=== PATIENT | female | born 1970 | race Caucasian/White ===

== ENCOUNTER 2019-12-23 08:55 | Outpatient (CLI) | payer BC, SELFPAY ==
--- NOTE | ~2019-12-23 | MM_ITS ---
EXAMINATION: MM scrn vicky implant BI w peter HISTORY: Screening mammogram TECHNIQUE: Craniocaudal and mediolateral oblique 3-D tomosynthesis images with implant displacement a nd synthetic 2-D images were generated. Craniocaudal and mediolateral oblique views of the breasts wi thout implant displacement were obtained using full field digital mammography. CAD analysis was submi tted and interpreted. COMPARISON: 01/14/2018, 11/10/2016, 02/22/2015 bilateral implant digital screening mammogram examinati ons BREAST PARENCHYMAL COMPOSITION: The breasts are almost entirely fatty. FINDINGS: Status post bilateral augmentation mammoplasty. There is no evidence of suspicious mass, ca lcification, or architectural distortion to suggest malignancy in either breast. There has been no pierre spicious interval change. IMPRESSION: 1. No mammographic evidence of malignancy. 2. Recommend routine screening mammography in one year. BI-RADS Category 1: Negative Reviewed, dictated and finalized at location A.
== END 2019-12-23 08:56 | disposition home or self-care (01) ==
LOC: ANHIMG 08:57
PROVIDERS: PCP Registered Nurse; Visit Provider Registered Nurse
DX: Z12.31 Encounter for screening mammogram for malignant neoplasm of breast (principal)
CPT/HCPCS: 77063; 77067

== ENCOUNTER 2023-11-23 00:44 | Day surgery (SDC) | payer OTHER, SELFPAY ==
--- NOTE | 2023-11-19 10:43 | SUR.PREOP ---
Report to the Outpatient Waiting Room, entrance under the green pavilion located off [facility], at time ___1130____ on date ____11/23/23___. Planned Procedure Time: ____1330____. Time changes happen often and if your time is changed the preop area will call you the afternoon before. - You and your visitor will be asked to self-screen and do not enter if you have any COVID symptoms. - A mask is optional within the hospital at this time. Patients may have clear liquids (water, carbonated beverages, clear teas, apple juice) until 3 hours prior to surgery with a maximum of 20 ounces. - NO CLEAR LIQUIDS AFTER 1030 - No food from midnight until time of surgery - Infants may have breast milk until 4 hours before surgery, infant formula 6 hours prior to surgery. - Children will be allowed to drink immediately following surgery. If applicable, please bring a bottle or sippy cup to assist with drinking. Juice, water, soda, and popsicles are readily available. For infants on formula, please bring formula the day of surgery. Pacifiers are allowed. Take the following medications with a SIP of water the morning of surgery: N/A DO NOT STOP ANY OF YOUR OTHER PRESCRIPTION MEDICATIONS PRIOR TO SURGERY ?EXCEPT THE FOLLOWING Medications to discontinue per physician N/A Date to take last dose Please no make-up, nail [place] islander, hairspray, perfume, deodorant, or body powder the day of surgery. No jewelry (including any body piercings) or valuables the day of surgery, leave them at home. Please take a shower or bath the night before, or the morning of, surgery with an antibacterial soap. Wear comfortable, loose fitting clothing. Children are encouraged to wear pajamas. - Jewelry must be removed prior to entering the operating room. Rings and piercings that are not removed may be cut off. - The hospital will not accept responsibility for valuables. - Please leave all valuables, including medications, at home the day of surgery. If you are going home after surgery, a licensed straddle truck driver must drive you home. - NO public transportation without another adult if you receive anesthesia. - We recommend that an adult stay with you for 24 hours following discharge. - We also recommend that you do not drive, make important decision, drink alcoholic beverages, or take any drugs that were not prescribed by your health care provider for at least 24 hours after your discharge time. For Pediatric surgeries, we recommend two adults accompany the child home. Follow any additional instructions given to you from your surgeon. If you or anyone in your household have experienced Covid symptoms in the past week, please notify your surgeon or the nurse liaison at the phone number below for possible testing. Telephone instructions given to DONNA VALENTIN and asked if any additional questions and then verbalized understanding. Patient advised to call surgeon office or pre surgery nurse liaison [phone] if any additional questions.
[2023-11-19 10:56] VITALS: BMI 29.1
[2023-11-23] VITALS (7 sets, daily range): BP systolic 111–125; BP diastolic 73–80; PULSE 84–104; RESP 12–16; TEMP 36.2–36.3; O2SAT 97–100; BMI 27.6
[2023-11-23 06:28] LABS: Urine Cotinine NEGATIVE
--- NOTE | 2023-11-23 07:00 | P.PNAN_ITS ---
Anes - Initial Pre Proc Eval Procedure: Operation Date: 11/23/23 07:30 Proposed Procedures p Bilateral Breast Implant Exchange - Luis F Loo MD s Bilateral Breast Mastopexy - Luis F Loo MD Date/Time: 11/23/23 07:00 Surgeon: Luis F Loo MD Pre Op Diagnosis: hx of breast aug, breast ptosis Patient Data Age: 53 Gender: F Height: 1.65 m Weight: 79.5 kg Allergies Allergy/AdvReac Type Severity Reaction Status Date / Time No Known Allergies Allergy Unverified 11/19/23 10:54 Home Medications Medication Instructions Recorded Confirmed Type No Home Medications 11/19/23 11/19/23 History Laboratory Tests 11/23/23 06:11 Cotinine Negative Patient hx anesthesia problems: hx of malignant hyperthermia (Her little brother had MH episode w dental sx. He survived and family has had subsequent nontriggering anesthetics. ) Family hx anesthesia problems: none Results Review: All pre-operative results and documents have been reviewed as part of the pre- operative evaluation. [facility] Social History Social History Smoking status: Never smoker Alcohol intake: current Drinks per week: 4 Substance use: never Living arrangements: with family Spiritual care concerns: No Anes - Eval Final PreProcedure Day of Procedure 11/23/23 07:00 Patient weight: overweight Heart: regular rate and rhythm Lungs: clear to auscultation Airway: Mallampati scale class II Neurological: alert and oriented Last oral intake: >/= 8 hours ASA classification: I Emergent: no Anesthetic plan: proceed Anesthesia type and monitoring: general LMA and standard monitoring Results Review: All pre-operative results and documents have been reviewed as part of the pre- operative evaluation. Informed Consent: The patient's anesthetic plan and its attendant risks and benefits were discussed with the patient/family/POA. Questions were solicited and answers provided to the satisfaction of the patient/family/POA.
--- NOTE | 2023-11-23 07:21 | P.OP_ITS ---
Procedure Note - Detailed Date of Procedure 11/23/23 Pre-op Diagnosis hx of breast aug, breast ptosis Post-op Diagnosis Same Procedure Performed Bilateral implant exchange / mastopexy Surgeon Luis F Loo MD Anesthesia General Findings Inverted T Previous implants: Textured saline ruptured 325cc No worrisome features noted New Implants: Bilateral Sheyla Franco SoftTouch 440cc Right REF# [id number] SN [id number] Left REF# [id number] SN [id number] Lipoaspirate: 200 cc Description of Procedure She is here today for bilateral breast implant exchange mastopexy. Previously and again today the risks, benefits, alternatives were discussed in extensive detail. I wanted her to be very realistic about the risks involved as well as expectations. We discussed all her options for scar pattern given retraction and she has elected not to place a scar around the areola only vertical / IMF accepting a slight asymmetry of NAC position. She understands laterally she will have fullness as her adipose tissue extends to the back. She may have skin laxity as well. We discussed aftercare and what to monitor for. Made sure answered all of her questions to her satisfaction today and consent was obtained. Marked in the preoperative holding area with their verification. The patient was taken to the operating room placed supine on the operating table. Anesthesia was provided by anesthesiology. A surgical time-out was taken. She was prepped and draped in a standard sterile fashion. 11 blade mad a stab incision and the Lateral breast was infiltrated with a tumescent solution (avoiding central breast). Tegaderm nipple Bowens were placed. A 15 blade used to make an incision at the previous IMF scar. Dissection was continued until the previous implant was identified and removed. Capsulotomy completed for significant portion capsule. I then copiously irrigated with saline solution and verified a strict hemostasis. Next the use a triple antibiotic and Betadine containing solution to irrigate the pocket. I washed my gloves with the triple antibiotic and Betadine solution. We washed the implant immediately upon opening it with this solution and only opened it when we needed it. I used implant funnel and no-touch technique. The implant was introduced into the pocket using the funnel. Having verified positioning of the implant this was closed using 2-0 PDS. I tailor tacked the breast into position. Placed her in a sitting position. Suction lipectomy was completed laterally with a 4mm [place] cannula based on preoperative planning, intraoperative observation, and rolling pinch test. I then removed the inferior central portion of the breast need making sure the implant was well protected. I elevated medial and lateral tissue flaps as well for planned closure. I closed along the IMF with 2-0 Stratafix. Along the vertical with 2-0 PDS. 3- 0 Monocryl along the vertical. 3-0 Stratafix along the IMF. I finally closed everything with running subcuticular 4-0 Monocryl and tissue glue. Fluffs and surgical bra were placed. Estimated Blood Loss 50 Drains No Packing No Pathology Yes (Bilateral breast tissue) Complications No immediate complications Condition Stable Disposition PACU
--- NOTE | 2023-11-23 07:21 | WPDHPUPDATE1 ---
History and Physical Update Update Date/Time: 11/23/23 07:21 History and Physical has been reviewed, including an updated exam of the patient. There are NO changes in the patient's condition. Risks, benefits, and alternatives have been discussed and questions answered. Patient agrees to proceed with procedure.
[2023-11-23] MEDS: TRANEXAMIC ACID 1,000MG/ISO100 1,000 MG/100 ML BAG 200 MG IVPB (07:24)
[2023-11-23] MEDS: LACTATED RINGERS 1,000 ML 30 ML IV CONT ×3 (07:29→09:31)
[2023-11-23] MEDS: ceFAZolin 2 GM/D5W 50 ML 2 GM/50 ML BAG IVPB (07:39)
[2023-11-23] MEDS: NACL 0.9% IRRIG POUR BOTTLE 900 ML, GENTAMICIN SULFATE INJ 160 MG, ceFAZolin 2 GM, POVI... IRRIGATION (07:59)
[2023-11-23] MEDS: LACTATED RINGERS IRRIG 1,000 ML, LIDOCAINE HCL 1% LOCAL INJ 50 ML, EPINEPHrine HCL INJ ... INFILTRATE (08:00)
[2023-11-23] MEDS: fentaNYL CITRATE INJ (*CRX) 100 MCG/2 ML VIAL 25 MCG IV PUSH ×6 (09:44→10:06)
[2023-11-23] MEDS: oxyCODONE HCL (*CRX) 5 MG TAB IR PO (10:35)
== END 2023-11-23 11:17 | disposition home or self-care (01) ==
PROVIDERS: PCP Registered Nurse; Visit Provider Surgery Plastic and Reconstructive Surgery
PROC: (CPT 19342; principal; 2023-11-23 07:30)
PROC: (CPT 19316; 2023-11-23 07:30)
DX: Z41.1 Encounter for cosmetic surgery (principal); T85.41XA Breakdown (mechanical) of breast prosthesis and implant, initial encounter; N64.81 Ptosis of breast; Z79.85 Long-term (current) use of injectable non-insulin antidiabetic drugs; Z98.890 Other specified postprocedural states; Z84.89 Family history of other specified conditions; Y83.8 Other surgical procedures as the cause of abnormal reaction of the patient, or of later complication, without mention of misadventure at the time of the procedure
CPT/HCPCS: 19370; 19325; 19316; 15877; 80307; 88304; A9270; J0171; J0690; J1100; J1170; J1580; J2250; J2405; J2704; J3010; J7120